=== PATIENT | male | born 1960 | race Caucasian/White ===

== ENCOUNTER 2016-09-10 15:19 | Emergency (ER) | payer MEDICAID | END 2016-09-10 18:51 | disposition home or self-care (01) | LOC: D.ER 15:19 | DX: M06.9 Rheumatoid arthritis, unspecified (principal); G89.29 Other chronic pain; I10 Essential (primary) hypertension; Z86.73 Personal history of transient ischemic attack (TIA), and cerebral infarction without residual deficits ==

== ENCOUNTER 2016-11-09 16:05 | Emergency (ER) | payer MEDICAID | END 2016-11-09 21:05 | disposition home or self-care (01) | LOC: D.ER 16:05 | DX: M25.50 Pain in unspecified joint (principal); M19.90 Unspecified osteoarthritis, unspecified site; M06.9 Rheumatoid arthritis, unspecified; I10 Essential (primary) hypertension ==

== ENCOUNTER 2016-12-01 21:39 | Emergency (ER) | payer MEDICAID | END 2016-12-02 00:15 | disposition home or self-care (01) | LOC: D.ER 21:39 | DX: M25.532 Pain in left wrist (principal); M25.531 Pain in right wrist; M06.9 Rheumatoid arthritis, unspecified; F11.90 Opioid use, unspecified, uncomplicated; M79.642 Pain in left hand; M79.641 Pain in right hand; M25.512 Pain in left shoulder; M25.511 Pain in right shoulder ==

== ENCOUNTER 2017-06-26 13:09 | Emergency (ER) | payer MEDICAID | END 2017-06-26 16:07 | disposition home or self-care (01) | LOC: D.ER 13:09 | DX: M06.9 Rheumatoid arthritis, unspecified (principal) ==

== ENCOUNTER 2017-07-16 18:25 | Emergency (ER) | payer MEDICAID | END 2017-07-16 19:44 | disposition home or self-care (01) | LOC: D.ER 18:25 | DX: M06.9 Rheumatoid arthritis, unspecified (principal) ==

== ENCOUNTER 2017-12-03 16:43 | Emergency (ER) | payer MEDICAID ==
[2017-12-03 18:10] LABS: BASOPHILS 0.2 % (0-2); EOSINOPHILS 0.2 % (0-7); HEMATOCRIT 39.6 % (42.0-54.0); HEMOGLOBIN 13.5 g/dL (13.5-17.5); LYMPHOCYTES 17.1 % (15-50); MCHC 34.1 g/dL (31.0-37.0); MEAN PLATELET VOLUME 9.6 fL (7.4-10.4); MONOCYTES 4.4 % (2-11); NEUTROPHILS 78.1 % (40-80); PLATELET COUNT 235 10x3/uL (130-400); RBC 4.83 10x6/uL (4.20-6.10); RDW 14.6 % (11.5-14.5)
[2017-12-03 18:11] LABS: APPEARANCE CLEAR (CLEAR); BILIRUBIN NEGATIVE (NEGATIVE); COLOR YELLOW (YELLOW); GLUCOSE NEGATIVE (NEGATIVE); KETONE NEGATIVE (NEGATIVE); NITRITE NEGATIVE (NEGATIVE); PROTEIN NEGATIVE (NEGATIVE); SPECIFIC GRAVITY 1.015 (1.005-1.020); UROBILINOGEN NORMAL (NORMAL)
[2017-12-03 18:13] LABS: ALBUMIN 3.3 g/dL (3.4-5.0); BILIRUBIN - TOTAL 0.18 mg/dL (0.2-1.3); CALCIUM 8.8 mg/dL (8.5-10.1); CARBON DIOXIDE 27.3 mmol/L (21.0-32.0); CREATININE - SERUM 1.3 mg/dL (0.6-1.3); POTASSIUM - SERUM 4.3 mmol/L (3.5-5.1); PROTEIN - SERUM 7.6 g/dL (6.4-8.2)
== END 2017-12-03 21:37 | disposition home or self-care (01) ==
LOC: D.ER 16:43
PROVIDERS: Family Medicine
DX: I82.402 Acute embolism and thrombosis of unspecified deep veins of left lower extremity (principal); R22.42 Localized swelling, mass and lump, left lower limb; M79.605 Pain in left leg; Z86.718 Personal history of other venous thrombosis and embolism; F17.200 Nicotine dependence, unspecified, uncomplicated

== ENCOUNTER 2018-02-06 15:46 | Emergency (ER) | payer MEDICAID ==
[~2018-02-06] VITALS: Ht 175.3 cm; Wt 65.0 kg
[2018-02-06 16:19] VITALS: BP 100/38; Ht 175.3 cm; Wt 65.0 kg
[2018-02-06] MEDS ORDERED: HYDROCODONE-IB1 EAC3 PO (16:22)
[2018-02-06] MEDS ORDERED: LISINOPRIL-HCTZ1 T13 PO (16:22)
[2018-02-06] MEDS ORDERED: XANAX1 MG PO (16:22)
[2018-02-06] MEDS ORDERED: INDOCIN-SR75 MG PO (16:23)
[2018-02-06] MEDS ORDERED: BLOOD THINNER (16:23)
[2018-02-06] MEDS ORDERED: ELIQUIS5 MG PO (18:03)
== END 2018-02-06 18:47 | disposition home or self-care (01) ==
LOC: D.ER 15:46
DX: Z76.0 Encounter for issue of repeat prescription (principal); Z86.718 Personal history of other venous thrombosis and embolism; F17.200 Nicotine dependence, unspecified, uncomplicated

== ENCOUNTER 2019-01-26 16:06 | Emergency (ER) | payer MEDICAID ==
[~2019-01-26 16:06] MED LIST: BLOOD THINNER; ELIQUIS5 MG PO; HYDROCODONE-IB1 EAC3 PO; INDOCIN-SR75 MG PO; LISINOPRIL-HCTZ1 T13 PO; XANAX1 MG PO
[2019-01-26 16:19] VITALS: BMI 22.9
[2019-01-26 17:05] LABS: BASOPHILS 0.3 % (0-2); EOSINOPHILS 1.3 % (0-7); HEMATOCRIT 33.7 % (42.0-54.0); IMMATURE GRANULOCYTES 0.2 % (0-5); LYMPHOCYTES 16.6 % (15-50); MCH 28.4 pg (26.0-34.0); MCHC 35.6 g/dL (31.0-37.0); MCV 79.7 fL (80.0-100.0); MEAN PLATELET VOLUME 9.5 fL (7.4-10.4); MONOCYTES 8.6 % (2-11); PLATELET COUNT 244 10x3/uL (130-400); RBC 4.23 10x6/uL (4.20-6.10); RDW 14.1 % (11.5-14.5); WBC 11.1 10x3/uL (4.8-10.8)
[2019-01-26 17:21] LABS: INR 1.16 (0.85-1.17); PROTIME 14.3 SECONDS (11.6-15.0)
[2019-01-26 17:22] LABS: APTT 31.7 SECONDS (22.8-39.4)
[2019-01-26 17:24] LABS: ALBUMIN 2.8 g/dL (3.4-5.0); ALKALINE PHOSPHATASE 120 U/L (46-116); ALT (SGPT) 26 U/L (10-68); BILIRUBIN - TOTAL 0.34 mg/dL (0.2-1.3); CALC OSMOLALITY 276 mosm/kg (275-300); CALCIUM 8.7 mg/dL (8.5-10.1); CARBON DIOXIDE 24.5 mmol/L (21.0-32.0); CHLORIDE - SERUM 100 mmol/L (98-107); CREATININE - SERUM 1.7 mg/dL (0.6-1.3); GLUCOSE 91 mg/dL (74-106); PROTEIN - SERUM 7.7 g/dL (6.4-8.2); SODIUM 135 mmol/L (136-145); UREA NITROGEN 32 mg/dL (7-18); eGFR NON AFRICAN AMERICAN 44 mL/min (90-120)
[2019-01-26 17:35] LABS: CKMB 1.9 U/L (0.0-3.6); CREATINE KINASE 71 UL (21-232); PRO BNP 198 pg/mL (0-125); TROPONIN-I < 0.017 ng/mL (0.000-0.060)
[2019-01-26 18:04] LABS: ERYTHROCYTE SEDIMENTATION RATE 93 mm/hr (0-20)
[2019-01-26] MEDS ORDERED: VIBRAMYCIN 100100 MG PO (18:31)
[2019-01-26] MEDS ORDERED: ALBUTEROL SULF8.5 GM INH (18:31)
[2019-01-26] MEDS ORDERED: HYDROCODON-ACE1 EAC2 PO (18:33)
[2019-01-26 19:40] VITALS: BP 106/72
[2019-05-03 15:17] VITALS: BMI 22.1
== END 2019-01-26 19:40 | disposition home or self-care (01) ==
LOC: D.ER 16:06
PROVIDERS: Family Medicine
DX: R05 Cough (principal); M06.9 Rheumatoid arthritis, unspecified

== ENCOUNTER 2019-04-28 15:33 | Emergency (ER) | payer MEDICAID ==
[~2019-04-28] VITALS: Ht 175.3 cm; Wt 68.2 kg
[~2019-04-28 15:33] MED LIST changes: +ALBUTEROL SULF8.5 GM INH; +HYDROCODON-ACE1 EAC2 PO; +VIBRAMYCIN 100100 MG PO
[2019-04-28 15:47] VITALS: BP 110/63; Ht 175.3 cm; Wt 68.2 kg
[2019-04-28 16:53] LABS: BASOPHILS 0.2 % (0-2); EOSINOPHILS 0.2 % (0-7); HEMATOCRIT 36.9 % (42.0-54.0); HEMOGLOBIN 12.9 g/dL (13.5-17.5); IMMATURE GRANULOCYTES 0.2 % (0-5); LYMPHOCYTES 9.1 % (15-50); MCH 28.7 pg (26.0-34.0); MEAN PLATELET VOLUME 9.1 fL (7.4-10.4); NEUTROPHILS 83.3 % (40-80); PLATELET COUNT 222 10x3/uL (130-400); RDW 14.1 % (11.5-14.5)
[2019-04-28 17:11] LABS: ALBUMIN 3.2 g/dL (3.4-5.0); ANION GAP 12.4 mmol/L (8-16); BILIRUBIN - TOTAL 0.35 mg/dL (0.2-1.3); C-REACTIVE PROTEIN 9.6 mg/dL (0.0-0.9); CALCIUM 8.8 mg/dL (8.5-10.1); CARBON DIOXIDE 25.9 mmol/L (21.0-32.0); CREATININE - SERUM 1.5 mg/dL (0.6-1.3); POTASSIUM - SERUM 4.3 mmol/L (3.5-5.1); PROTEIN - SERUM 7.9 g/dL (6.4-8.2)
[2019-04-28 18:28] LABS: ERYTHROCYTE SEDIMENTATION RATE 35 mm/hr (0-20)
[2019-04-28] MEDS ORDERED: CLEOCIN HCL300 MG PO (21:20)
[2019-05-03 15:17] VITALS: Ht 175.3 cm; Wt 68.2 kg
== END 2019-04-28 22:00 | disposition left against medical advice (07) ==
LOC: D.ER 15:33
PROVIDERS: Emergency Medicine
DX: L03.113 Cellulitis of right upper limb (principal)

== ENCOUNTER 2019-05-02 18:56 | Inpatient (IN) | payer MEDICAID ==
[~2019-05-02] VITALS: Ht 175.3 cm; Wt 68.0 kg
[~2019-05-02 18:56] MED LIST changes: +CLEOCIN HCL300 MG PO
[2019-05-02 19:26] LABS: HEMATOCRIT 30.9 % (42.0-54.0); HEMOGLOBIN 10.6 g/dL (13.5-17.5); LYMPHOCYTES 21.3 % (15-50); MCH 28.6 pg (26.0-34.0); MCHC 34.3 g/dL (31.0-37.0); MCV 83.5 fL (80.0-100.0); MEAN PLATELET VOLUME 8.9 fL (7.4-10.4); NEUTROPHILS 68.6 % (40-80); PLATELET COUNT 235 10x3/uL (130-400); RDW 14.4 % (11.5-14.5); WBC 8.8 10x3/uL (4.8-10.8)
[2019-05-02 19:43] LABS: ALBUMIN 2.6 g/dL (3.4-5.0); BILIRUBIN - TOTAL 0.26 mg/dL (0.2-1.3); CALCIUM 8.2 mg/dL (8.5-10.1); CARBON DIOXIDE 23.6 mmol/L (21.0-32.0); CREATININE - SERUM 1.8 mg/dL (0.6-1.3); POTASSIUM - SERUM 3.7 mmol/L (3.5-5.1); PROTEIN - SERUM 7.1 g/dL (6.4-8.2)
[2019-05-02 20:43] LABS: ANION GAP 14.1 mmol/L (8-16)
[2019-05-02 23:32] VITALS: BP 97/50
--- NOTE | 2019-05-02 23:32 | NUR ---
NS BOLUS 0F 1000CC STARTED AT 2031 FINISHED AT 2139.
[2019-05-03 00:16] VITALS: BP 77/59
[2019-05-03 05:10] VITALS: BP 105/65
[2019-05-03 06:50] LABS: BASOPHILS 0.2 % (0-2); EOSINOPHILS 1.7 % (0-7); HEMOGLOBIN 9.6 g/dL (13.5-17.5); IMMATURE GRANULOCYTES 0.3 % (0-5); LYMPHOCYTES 16.5 % (15-50); MCHC 34.3 g/dL (31.0-37.0); MCV 81.6 fL (80.0-100.0); MEAN PLATELET VOLUME 9.7 fL (7.4-10.4); MONOCYTES 8.5 % (2-11); NEUTROPHILS 72.8 % (40-80); PLATELET COUNT 225 10x3/uL (130-400); RBC 3.43 10x6/uL (4.20-6.10); RDW 14.2 % (11.5-14.5); WBC 9.6 10x3/uL (4.8-10.8)
[2019-05-03 07:00] LABS: ANION GAP 11.2 mmol/L (8-16); CALCIUM 7.7 mg/dL (8.5-10.1); CARBON DIOXIDE 24.9 mmol/L (21.0-32.0); CREATININE - SERUM 1.6 mg/dL (0.6-1.3); POTASSIUM - SERUM 4.1 mmol/L (3.5-5.1)
[2019-05-03 07:18] VITALS: BP 90/58
--- NOTE | 2019-05-03 07:57 | NUR ---
PT LAYING IN BED. RR EVEN AND UNLABORED. DENIES NEEDS OR PAIN AT THIS TIME. PT RECIEVED BREAKFAST TRAY. ASSISTED PT TO SIDE OF BED. WILL CONTINUE TO MONITOR.
--- NOTE | 2019-05-03 13:16 | MORECARE ---
CASE MANAGEMENT DISCHARGE SUMMARY PATIENT: CASSY MENDIOLA UNIT: [id number] ADM DATE: 05/02/19 AGE: 58 : 56 SEX: M ROOM/BED: D.1212 AUTHOR: TOYA MCCONNELL PHYSICIAN: REFERRING PHYSICIAN: CHIDI WHALEN MD DATE OF SERVICE: 05/03/19 Discharge Plan Patient Name: CASSY MENDIOLA [facility] : 1960 Planned Disposition: Home Anticipated Discharge Date: Discharge Date: Expected LOS: Initial Reviewer: [email or web address] Initial Review Date: 05/03/2019 Generated: 05/03/19 2:16 pm DCPIA - Discharge Planning Initial Assessment Updated by [email or web address]: Bee Robles on 05/03/19 1:14 pm * Is the patient Alert and Oriented? Yes * How many steps to enter\exit or inside your home? * PCP IZABELA * Pharmacy [facility] * Preadmission Environment Home with Family * ADLs Partial Dependent * Partial ADLs (Assistance needed) Bathing Dressing Eating Medication Management Toileting Transfers * Other Equipment CANE, WALKER * List name and contact numbers for known caregivers / representatives who currently or will assist patient after discharge: DANIEL MENDIOLA - BROTHER- [phone] * Verbal permission to speak to the caregivers and representatives has been obtained from the patient. Yes * Community resources currently utilized Other * Please name any agencies selected above. [facility] [phone] - SISTER IS PAID TO CARE FOR HIM * Additional services required to return to the preadmission environment? No * Can the patient safely return to the preadmission environment? Yes * Has this patient been hospitalized within the prior 30 days at any hospital? No Patient Name: CASSY MENDIOLA Page 43218 at 1316 All edits/amendments must be made on the electronic document DICTATION DATE: 05/03/19 1316 DRESSER TENDER: GILBERT 05/03/19 1316 RPT#: [id number] DC DATE: STATUS: ADM IN [facility] [address] [place] [address] END OF REPORT
--- NOTE | 2019-05-03 13:30 | MORECARE ---
CASE MANAGEMENT DISCHARGE SUMMARY PATIENT: CASSY MENDIOLA UNIT: [id number] ADM DATE: 05/02/19 AGE: 58 : 56 SEX: M ROOM/BED: D.1212 AUTHOR: JAYESH,DOC PHYSICIAN: REFERRING PHYSICIAN: CHIDI WHALEN MD DATE OF SERVICE: 05/03/19 Discharge Plan Patient Name: CASSY MENDIOLA Facility: [facility]:[place] : 1960 Planned Disposition: Home Anticipated Discharge Date: Discharge Date: Expected LOS: Initial Reviewer: [email or web address] Initial Review Date: 05/03/2019 Generated: 05/03/19 2:30 pm DCP- Discharge Planning Updated by [email or web address]: Bee Robles on 05/03/19 12:[address] Patient Name: CASSY MENDIOLA Admission Status: ER Accout number: [id number] Admission Date: 05-02-2019 : 1960 Admission Diagnosis: Attending: CHIDI WHALEN Current LOS: 1 Anticipated DC Date: Planned Disposition: Home Primary Insurance: MEDICAID [place] Discharge Planning Comments: CM met with patient at bedside after explaining CM role and obtaining verbal consent. Patient lives at home with his sister and plans to return there upon discharge. Patient states that his is his caregiver and is paid by [employer] [phone] to take care of him in the home. Patient isn't happy with the care his sister is giving. CM will give patient the number to [place] if he would like to report it. Patient feels this would be a safe discharge. CM discussed availability / needs of home health and medical equipment. Patient states that he has been trying to get [facility] but has multiple appointments rescheduled for one reason or the other. CM called [facility] ([address] [place] [address] [address], [place] [address] ) CM contacted office to see if they would fax over new patient paper work so CM could help patient fill it out since he is unable to write d/t arthritis. This has been a barrier for prior appointments. Patient currently has an appointment scheduled for June 09. Patient denies any discharge needs at this time. Patient states he will have his sister drive him home upon discharge. CM will continue to follow and assist as needed with discharge planning / needs. Senior Sales Director: Bee WOODALL - Discharge Planning Initial Assessment Updated by [email or web address]: Bee Robles on 05/03/19 1:14 pm * Is the patient Alert and Oriented? Yes * How many steps to enter\exit or inside your home? * PCP IZABELA * Pharmacy [facility] * Preadmission Environment Home with Family * ADLs Partial Dependent * Partial ADLs (Assistance needed) Bathing Dressing Eating Medication Management Toileting Transfers * Other Equipment CANE, WALKER * List name and contact numbers for known caregivers / representatives who currently or will assist patient after discharge: DANIEL MENDIOLA - BROTHER- [phone] * Verbal permission to speak to the caregivers and representatives has been obtained from the patient. Yes * Community resources currently utilized Other * Please name any agencies selected above. [facility] [phone] - SISTER IS PAID TO CARE FOR HIM * Additional services required to return to the preadmission environment? No * Can the patient safely return to the preadmission environment? Yes * Has this patient been hospitalized within the prior 30 days at any hospital? No Last DP export: 05/03/19 12:16 p Patient Name: CASSY MENDIOLA Page [phone] at 1330 All edits/amendments must be made on the electronic document DICTATION DATE: 05/03/19 1330 FULLER BRUSH WORKER: GILBERT 05/03/19 1330 RPT#: [id number] DC DATE: STATUS: ADM IN [facility] [address] [place] [address] END OF REPORT
[2019-05-03 15:17] VITALS: Ht 175.3 cm; Wt 68.0 kg
[2019-05-03 17:16] VITALS: BP 108/63
--- NOTE | 2019-05-03 19:43 | NUR ---
GUESTS WERE HERE WITH LOTS OF REQUESTS FOR PATIENT, TV WAS NOT LOUD ENOUGH FOR THEM, THEY HAD CONCERNS OF HIM NOT GETTING NICOTINE PATCH, WHICH WAS ORDERED, WE ARE WAITING FOR SCRIPT TO BE FILLED, THEY WERE LOUD AND BOISTEROUS AND LEFT HIS ROOM IN DISARRAY, HE HAD STAFF HELP HIM GET IT STRAIGHTENED BACK UP.
[2019-05-03 19:46] VITALS: BP 114/55
--- NOTE | 2019-05-03 20:44 | NUR ---
NICOTINE PATCH APPLIED TO RIGHT SHOULDER, STATES HE WOULD LIKE HIS PAIN MEDICATION, EXPLAINED HE WOULD NEED TO WAIT ONE MORE HOUR TO BE IN COMPLIANCE, HE STATED HE GOT IT THREE TIMES A DAY AT HOME, THIS NURSE EXPLAINED IT WAS ORDERED EVERY 6 HOURS HERE NEEDED AND THAT HE WOULD NEED TO REQUEST IT, HE VERBALIZED UNDERSTANDING. IV CONTINUES TO OCCLUDE TO LEFT WRIST WHEN TALKING ON PHONE, REFUSES RESITING AT THIS TIME. WILL NOTE ANY CHANGE.
--- NOTE | 2019-05-03 22:32 | NUR ---
IV CONTINUES TO OCCLUDE CAUSING AGITATION TO PATIENT, HOWEVER, PT STILL DOES NOT WANT IT TO BE RESITED. PT REQUESTED IV TO BE SALINE LOCKED AT THIS TIME. HE STATES HE JUST WANTS TO SLEEP IN [place]. REQUEST GRANTED WITH AGREEMENT TO LET THIS NURSE RESITE IN MORNING AFTER HOURS OF SLEEP.
[2019-05-03 23:19] VITALS: BP 121/84
--- NOTE | 2019-05-04 02:28 | NUR ---
I have reviewed this patient and I concur with the Shift Assessment completed by the Licensed Practical Nurse today this shift.
[2019-05-04 05:29] VITALS: BP 131/69
--- NOTE | 2019-05-04 05:41 | NUR ---
ATTEMPTED TO RESITE IV WITH NO SUCCESS, PT IS NOT WILLING TO CONTINUE TO TRY AT THIS TIME. VASCULAR ACCESS CONSULT PUT IN. WILL NOTE ANY CHANGE.
[2019-05-04 06:40] LABS: BASOPHILS 0.2 % (0-2); EOSINOPHILS 0 % (0-7); HEMATOCRIT 26.5 % (42.0-54.0); HEMOGLOBIN 9.1 g/dL (13.5-17.5); IMMATURE GRANULOCYTES 0.2 % (0-5); MCH 27.9 pg (26.0-34.0); MCHC 34.3 g/dL (31.0-37.0); MCV 81.3 fL (80.0-100.0); MEAN PLATELET VOLUME 9.9 fL (7.4-10.4); MONOCYTES 3.1 % (2-11); NEUTROPHILS 86.5 % (40-80); PLATELET COUNT 215 10x3/uL (130-400); RBC 3.26 10x6/uL (4.20-6.10); RDW 14.2 % (11.5-14.5)
[2019-05-04 06:43] LABS: WBC 6.5 10x3/uL (4.8-10.8)
[2019-05-04 06:52] LABS: ALBUMIN 2.1 g/dL (3.4-5.0); BILIRUBIN - TOTAL 0.18 mg/dL (0.2-1.3); CARBON DIOXIDE 26.5 mmol/L (21.0-32.0); CREATININE - SERUM 1.7 mg/dL (0.6-1.3); POTASSIUM - SERUM 4.5 mmol/L (3.5-5.1); PROTEIN - SERUM 6.4 g/dL (6.4-8.2)
[2019-05-04 08:08] VITALS: BP 146/75
--- NOTE | 2019-05-04 09:04 | NUR ---
PT SITTING UP IN BED. ALERT AND ORIENTED. RIGHT ARM SWELLING HAS IMPROVED SLIGHTLY SINCE YESTERDAY. PT REQUESTS PAIN MEDICATION. WILL BE GIVEN PER ORDER. RR EVEN AND UNLABORED. PT INSTRUCTED TO GET UP AND WALK AROUND TODAY. ASSISTED TO THE SIDE OF THE BED TO EAT. VASCULAR ACCESS NURSE ATTEMPTED TO START IV. PT REQUESTED SHE COME BACK AFTER BREAKFAST IS FINISHED. WILL CONTINUE TO MONITOR.
--- NOTE | 2019-05-04 10:58 | NUR ---
PT IN SHOWER AT THIS TIME.
--- NOTE | 2019-05-04 11:00 | NUR ---
WEAPING NOTED FROM PT RIGHT ARM. KURLEX AND 2X2 APPPLIED. 1230- WEAPING SEPT THROUGH, DRESSING CHANGED
[2019-05-04 12:01] LABS: % SATURATION 24 % (15-55); IRON 38 ug/dl (35-150); TOTAL IRON BIND CAPACITY 156 ug/dl (260-445); UNSAT IRON BIND CAPACITY 118 ug/dl (150-375)
[2019-05-04 12:23] LABS: MAGNESIUM - SERUM 1.8 mg/dL (1.8-2.4)
--- NOTE | 2019-05-04 12:25 | NUR ---
I have reviewed this patient and I concur with the Shift Assessment completed by the Licensed Practical Nurse today this shift.
[2019-05-04 12:38] LABS: INR 1.11 (0.85-1.17); PROTIME 13.8 SECONDS (11.6-15.0)
[2019-05-04 12:39] LABS: APTT 40.6 SECONDS (22.8-39.4)
[2019-05-04 16:48] VITALS: BP 141/73
--- NOTE | 2019-05-04 18:03 | NUR ---
PT AMBULATING IN HALLWAY
--- NOTE | 2019-05-04 18:39 | NUR ---
BANDAGE FALLING OFF ARM. REDRESSED AND REINFORCED WITH AZALEA WRAP.
--- NOTE | 2019-05-04 19:29 | NUR ---
LYING IN BED, SPIRIT IS BETTER TONIGHT, ASKS QUESTIONS ABOUT HIS ANTIBIOTICS, ANSWERED BEST TO MY ABILITY. ATTEMPTS TO TELL ME HAS ORDERED HIS PAIN PILLS TO BE GIVEN HE REQUESTS WITH NO TIME RESTRAINTS, EDUCATED ON MEDICATION ORDERS, HE LAUGHED AND SAID I GUESS SO. IV TO RIGHT UPPER AC IS PATENT WITH IV INFUSING PER ORDERS. WILL NOTE ANY CHANGE.
[2019-05-04 20:09] VITALS: BP 115/80
--- NOTE | 2019-05-05 01:54 | NUR ---
I have reviewed this patient and I concur with the Shift Assessment completed by the Licensed Practical Nurse today this shift.
[2019-05-05 04:32] VITALS: BP 169/80
--- NOTE | 2019-05-05 05:29 | NUR ---
WAS UP AND AMBULATING THROUGHOUT SHIFT, IN [facility], THIS NURSE MADE COKE FLOAT FOR PT. PT RESTED APPROX 5 HOURS THIS SHIFT, WILL NOTE ANY CHANGE.
[2019-05-05 06:21] LABS: BASOPHILS 0.1 % (0-2); EOSINOPHILS 0 % (0-7); HEMATOCRIT 27.2 % (42.0-54.0); HEMOGLOBIN 9.3 g/dL (13.5-17.5); IMMATURE GRANULOCYTES 0.4 % (0-5); LYMPHOCYTES 7.9 % (15-50); MCH 27.8 pg (26.0-34.0); MCHC 34.2 g/dL (31.0-37.0); MCV 81.2 fL (80.0-100.0); MEAN PLATELET VOLUME 10.1 fL (7.4-10.4); MONOCYTES 4.9 % (2-11); NEUTROPHILS 86.7 % (40-80); RBC 3.35 10x6/uL (4.20-6.10); RDW 14.2 % (11.5-14.5)
[2019-05-05 06:31] LABS: PLATELET COUNT 276 10x3/uL (130-400); WBC 10.2 10x3/uL (4.8-10.8)
[2019-05-05 06:51] LABS: ALBUMIN 2.3 g/dL (3.4-5.0); ANION GAP 17.2 mmol/L (8-16); BILIRUBIN - TOTAL 0.07 mg/dL (0.2-1.3); CALCIUM 8.1 mg/dL (8.5-10.1); CREATININE - SERUM 1.3 mg/dL (0.6-1.3); PROTEIN - SERUM 5.9 g/dL (6.4-8.2)
[2019-05-05 06:52] LABS: CARBON DIOXIDE 19.8 mmol/L (21.0-32.0)
[2019-05-05 09:04] VITALS: BP 159/75
--- NOTE | 2019-05-05 09:41 | NUR ---
NUTRITION F/U PT TOLERATING CURRENT REG DIET, 100% INTAKE BREAKFAST THIS AM. WILL CONTINUE TO HONOR FOOD PREFERENCES, MONITOR PO INTAKE. RD FOLLOWING
--- NOTE | 2019-05-05 09:43 | NUR ---
PT RESTING, EYES CLOSED. VSS. ASSESSMENT COMPLETE. RR EVEN AND UNLABORED. WILL REDRESS ARM IF NEEDED. SWELLING AND REDNESS TO RIGHT UPPER EXTREMITY HAS IMPROVED SINCE YESTERDAY. ENCOURAGED TO AMBULATE IN HALLWAY. DENIES NEEDS OR PAIN AT THIS TIME. WILL CONTINUE TO MONITOR.
--- NOTE | 2019-05-05 11:30 | NUR ---
PT C/O IV HURTING. SITE RED AND SWOLLEN. IV D/C WITH CATHETER TIP INTACT. RIGHT ARM DRESSING REMOVED AND REDRESSED. PT EDUCATED ON ANTIBIOTICS.
--- NOTE | 2019-05-05 12:37 | NUR ---
I have reviewed this patient and I concur with the Shift Assessment completed by the Licensed Practical Nurse today this shift.
[2019-05-05] MEDS ORDERED: STERAPRED 5MG 125 MG PO (13:07)
[2019-05-05] MEDS ORDERED: HYDROCODONE-A1 UDTA2 PO (13:09)
--- NOTE | 2019-05-05 15:07 | NUR ---
D/C PAPERWORK REVIEWED AND SIGNED. ALL QUESTIONS ANSWERED AND VERBALIZED UNDERSTANDING. ALL BELONGINGS SENT WITH PT. PT INSTRUCTED TO TAKE OFF DRESSING ON ARM IN 24 HOURS OR IF IT FELL OFF. PT INSISTED ON WALKING OUT TO SISTER'S VEHICLE. WAS ESCORTED BY KATE [facility]. NICOTINE PATCH REMOVED BEFORE D/C.
--- NOTE | 2019-05-05 15:10 | NUR ---
COPY OF PT SCRIPT WAS PLACED IN CHART
--- NOTE | 2019-05-05 18:09 | MORECARE ---
CASE MANAGEMENT DISCHARGE SUMMARY PATIENT: CASSY MENDIOLA UNIT: [id number] ADM DATE: 05/02/19 AGE: 58 : 56 SEX: M ROOM/BED: D.1212 AUTHOR: JAYESH,DOC PHYSICIAN: REFERRING PHYSICIAN: CHIDI WHALEN MD DATE OF SERVICE: 05/05/19 Discharge Plan Patient Name: CASSY MENDIOLA Facility: [facility]:[place] : 1960 Planned Disposition: Home Anticipated Discharge Date: Discharge Date: 05/05/2019 Expected LOS: Initial Reviewer: [email or web address] Initial Review Date: 05/03/2019 Generated: 05/05/19 7:08 pm DCP- Discharge Planning Updated by [email or web address]: Bee Robles on 05/03/19 12:[address] Patient Name: CASSY MENDIOLA Admission Status: ER Accout number: [id number] Admission Date: 05-02-2019 : 1960 Admission Diagnosis: Attending: CHIDI WHALEN Current LOS: 1 Anticipated DC Date: Planned Disposition: Home Primary Insurance: MEDICAID [place] Discharge Planning Comments: CM met with patient at bedside after explaining CM role and obtaining verbal consent. Patient lives at home with his sister and plans to return there upon discharge. Patient states that his is his caregiver and is paid by [employer] [phone] to take care of him in the home. Patient isn't happy with the care his sister is giving. CM will give patient the number to [facility] if he would like to report it. Patient feels this would be a safe discharge. CM discussed availability / needs of home health and medical equipment. Patient states that he has been trying to get into [facility] Clinic but has multiple appointments rescheduled for one reason or the other. CM called [facility] ([address] [place] [address] [address], [place] [address] ) CM contacted office to see if they would fax over new patient paper work so CM could help patient fill it out since he is unable to write d/t arthritis. This has been a barrier for prior appointments. Patient currently has an appointment scheduled for June 09. Patient denies any discharge needs at this time. Patient states he will have his sister drive him home upon discharge. CM will continue to follow and assist as needed with discharge planning / needs. Ultrasound Specialist: Bee WOODALL - Discharge Planning Initial Assessment Updated by [email or web address]: Bee Robles on 05/03/19 1:14 pm * Is the patient Alert and Oriented? Yes * How many steps to enter\exit or inside your home? * PCP IZABELA * [facility] * Preadmission Environment Home with Family * ADLs Partial Dependent * Partial ADLs (Assistance needed) Bathing Dressing Eating Medication Management Toileting Transfers * Other Equipment CANE, WALKER * List name and contact numbers for known caregivers / representatives who currently or will assist patient after discharge: DANIEL MENDIOLA - BROTHER- [phone] * Verbal permission to speak to the caregivers and representatives has been obtained from the patient. Yes * Community resources currently utilized Other * Please name any agencies selected above. [facility] [phone] - SISTER IS PAID TO CARE FOR HIM * Additional services required to return to the preadmission environment? No * Can the patient safely return to the preadmission environment? Yes * Has this patient been hospitalized within the prior 30 days at any hospital? No Last DP export: 05/03/19 12:30 p Patient Name: CASSY MENDIOLA Page [id number] at 1809 All edits/amendments must be made on the electronic document DICTATION DATE: 05/05/191807 LOSS CONTROL TECHNICIAN: GILBERT 05/05/191807 RPT#: [id number] DC DATE:05/05/19 STATUS: DIS IN [facility] [address] [place] [address] END OF REPORT
== END 2019-05-05 16:10 | disposition home or self-care (01) | DRG 603 ==
LOC: D.ER 18:56 → D.M3 22:50
PROVIDERS: Emergency Medicine; Family Medicine; ADMIT Internal Medicine Nephrology; ATTEND Internal Medicine Nephrology
DX: L03.113 Cellulitis of right upper limb (principal); N17.9 Acute kidney failure, unspecified; F17.213 Nicotine dependence, cigarettes, with withdrawal; D50.9 Iron deficiency anemia, unspecified; M06.9 Rheumatoid arthritis, unspecified; Z86.73 Personal history of transient ischemic attack (TIA), and cerebral infarction without residual deficits; Z86.718 Personal history of other venous thrombosis and embolism

== ENCOUNTER 2019-10-08 11:19 | Emergency (ER) | payer MEDICAID ==
[~2019-10-08] VITALS: Ht 175.3 cm; Wt 72.7 kg
[~2019-10-08 11:19] MED LIST changes: +HYDROCODONE-A1 UDTA2 PO; +STERAPRED 5MG 125 MG PO
[2019-10-08 11:23] VITALS: Ht 175.3 cm; Wt 72.7 kg
[2019-10-08] MEDS ORDERED: ULTRAM50 MG PO (11:45)
[2019-10-08 11:54] VITALS: BP 136/78
== END 2019-10-08 11:55 | disposition home or self-care (01) ==
LOC: D.ER 11:19
DX: M06.9 Rheumatoid arthritis, unspecified (principal); I25.2 Old myocardial infarction; Z86.73 Personal history of transient ischemic attack (TIA), and cerebral infarction without residual deficits

== ENCOUNTER 2020-03-21 16:01 | Inpatient (IN) | payer MEDICAID ==
[~2020-03-21] VITALS: Ht 175.3 cm; Wt 72.5 kg
[2020-03-21] VITALS (8 sets, daily range): BP systolic 133–209; BP diastolic 99–143
[~2020-03-21 16:01] MED LIST changes: +ULTRAM50 MG PO
--- NOTE | 2020-03-21 17:00 | NUR ---
RAMÍREZ NUÑEZ NOTIFIED OF ELEVATED BP AND RESP DISRESS. SAVANNAH AT BS.
[2020-03-21 17:29] LABS: BASOPHILS 0.7 % (0-2); EOSINOPHILS 0.7 % (0-7); HEMATOCRIT 36.9 % (42.0-54.0); HEMOGLOBIN 12.1 g/dL (13.5-17.5); IMMATURE GRANULOCYTES 0.3 % (0-5); LYMPHOCYTES 23.7 % (15-50); MCHC 32.8 g/dL (31.0-37.0); MCV 79.2 fL (80.0-100.0); MEAN PLATELET VOLUME 9.7 fL (7.4-10.4); MONOCYTES 7.6 % (2-11); RBC 4.66 10x6/uL (4.20-6.10); RDW 15.5 % (11.5-14.5); WBC 7.4 10x3/uL (4.8-10.8)
--- NOTE | 2020-03-21 17:42 | NUR ---
NASAL SWAB COLLECTED, LABELED AT BS AND SENT TO LAB
[2020-03-21 17:43] LABS: INR 1.1 (0.85-1.17); PROTIME 14.2 SECONDS (11.6-15.0)
--- NOTE | 2020-03-21 17:43 | NUR ---
"EVERY JOINT IN MY BODY HURTS"
[2020-03-21 17:44] LABS: CALC OSMOLALITY 270 mosm/kg (275-300); CALCIUM 8.9 mg/dL (8.5-10.1); CARBON DIOXIDE 26.7 mmol/L (21.0-32.0); CHLORIDE - SERUM 100 mmol/L (98-107); CREATININE - SERUM 1.3 mg/dL (0.6-1.3); GLUCOSE 122 mg/dL (74-106); PLATELET COUNT 492 10x3/uL (130-400); POTASSIUM - SERUM 4.5 mmol/L (3.5-5.1); SODIUM 134 mmol/L (136-145); UREA NITROGEN 18 mg/dL (7-18); eGFR NON AFRICAN AMERICAN 60 mL/min (90-120)
[2020-03-21 18:05] LABS: ALBUMIN 2.9 g/dL (3.4-5.0); ALKALINE PHOSPHATASE 135 U/L (30-120); ALT (SGPT) 27 U/L (10-68); BILIRUBIN - TOTAL 0.49 mg/dL (0.2-1.3); CKMB 5.1 U/L (0.0-3.6); CREATINE KINASE 114 UL (21-232); PROTEIN - SERUM 7.2 g/dL (6.4-8.2)
[2020-03-21 18:13] LABS: PRO BNP 65109 pg/mL (0-125)
[2020-03-21 18:14] LABS: TROPONIN-I 0.065 ng/mL (0.000-0.060)
--- NOTE | 2020-03-21 18:25 | NUR ---
RESTING UPRIGHT, SPEAKING IN FULL SENTENCES. "PAIN A LITTLE BETTER NOW"
--- NOTE | 2020-03-21 19:17 | NUR ---
BS REPORT TO KATE DOSS
[2020-03-21 21:50] LABS: % SATURATION 11 % (15-55); IRON 33 ug/dl (35-150); TOTAL IRON BIND CAPACITY 288 ug/dl (260-445); UNSAT IRON BIND CAPACITY 255 ug/dl (150-375)
[2020-03-21 22:17] LABS: MAGNESIUM - SERUM 2.2 mg/dL (1.8-2.4)
[2020-03-22 00:23] LABS: CKMB 4.5 U/L (0.0-3.6); CREATINE KINASE 88 UL (21-232)
[2020-03-22 00:25] LABS: TROPONIN-I 0.064 ng/mL (0.000-0.060)
[2020-03-22 00:58] VITALS: BP 147/108
[2020-03-22 04:00] VITALS: BP 145/107
[2020-03-22 07:03] LABS: BILIRUBIN NEGATIVE (NEGATIVE); GLUCOSE NEGATIVE (NEGATIVE); KETONE NEGATIVE (NEGATIVE); NITRITE NEGATIVE (NEGATIVE); UROBILINOGEN NORMAL (NORMAL)
[2020-03-22 07:04] LABS: BACTERIA FEW /hpf (NEGATIVE); RED CELLS - URINE 0-5 /hpf (0-5); WHITE CELLS - URINE RARE /hpf (NEGATIVE)
[2020-03-22 07:21] LABS: HEMATOCRIT 33.1 % (42.0-54.0); HEMOGLOBIN 10.9 g/dL (13.5-17.5); MCHC 32.9 g/dL (31.0-37.0); MCV 78.8 fL (80.0-100.0); MEAN PLATELET VOLUME 10.1 fL (7.4-10.4); RDW 15.5 % (11.5-14.5)
[2020-03-22 07:22] LABS: PLATELET COUNT 381 10x3/uL (130-400); WBC 2.8 10x3/uL (4.8-10.8)
[2020-03-22 07:50] LABS: ALBUMIN 2.5 g/dL (3.4-5.0); ALKALINE PHOSPHATASE 117 U/L (30-120); ALT (SGPT) 25 U/L (10-68); BILIRUBIN - TOTAL 0.36 mg/dL (0.2-1.3); CALCIUM 8.5 mg/dL (8.5-10.1); CARBON DIOXIDE 24.7 mmol/L (21.0-32.0); CHLORIDE - SERUM 101 mmol/L (98-107); CKMB 3.9 U/L (0.0-3.6); CREATINE KINASE 69 UL (21-232); CREATININE - SERUM 1.2 mg/dL (0.6-1.3); GLUCOSE 131 mg/dL (74-106); MAGNESIUM - SERUM 2.2 mg/dL (1.8-2.4); POTASSIUM - SERUM 4.6 mmol/L (3.5-5.1); PROTEIN - SERUM 6.7 g/dL (6.4-8.2); SODIUM 133 mmol/L (136-145); eGFR NON AFRICAN AMERICAN 65 mL/min (90-120)
[2020-03-22 07:51] LABS: CALC OSMOLALITY 271 mosm/kg (275-300); TROPONIN-I 0.068 ng/mL (0.000-0.060); UREA NITROGEN 23 mg/dL (7-18)
--- NOTE | 2020-03-22 08:00 | NUR ---
PT SITTING UP IN BED, RR EVEN AND UNLABORED. DENIES NEEDS OR PAIN AT THIS TIME. CALL LIGHT WTIHIN RECH, BED IN LOWEST POSITION. WILL CONTINUE TO MONITOR. ROGELIO HEREDIA STATED PT WAS CLEAR TO EAT, BREAKFAST TRAY ORDERED
[2020-03-22 08:35] LABS: ANISOCYTOSIS OCC; LYMPHOCYTES 22 % (15-50); MONOCYTES 2 % (2-11); NEUTROPHILS 74 % (40-80); PLATELET ESTIMATE NORMAL; ROULEAUX 1+
[2020-03-22 08:50] VITALS: BP 161/68
[2020-03-22 12:11] LABS: CKMB 3.3 U/L (0.0-3.6); CREATINE KINASE 100 UL (21-232)
--- NOTE | 2020-03-22 12:30 | NUR ---
I have reviewed this patient and I concur with the Shift Assessment completed by the Licensed Practical Nurse today this shift.
[2020-03-22 12:52] LABS: TROPONIN-I 0.058 ng/mL (0.000-0.060)
[2020-03-22 13:23] VITALS: BP 152/107
[2020-03-22 14:05] VITALS: Ht 175.3 cm; Wt 72.5 kg
--- NOTE | 2020-03-22 14:46 | NUR ---
I have reviewed this patient and I concur with the Shift Assessment completed by the Licensed Practical Nurse today this shift.
[2020-03-22 20:00] VITALS: BP 165/101
--- NOTE | 2020-03-22 22:46 | NUR ---
PATIENT'S BLOOD PRESSURE WAS 165/101. i CALLED ANASTASIA OMALLEY, WHO ORDERED HYDRALZINE IV PRN. BLOOD PRESSURE IS NOT HIGH ENOUNGH TO GIVE IV MEDICATION. WE WILL CONTINUE TO MONITOR HIS BLOOD PRESSURE.
[2020-03-23] VITALS: BP 168/117
[2020-03-23 04:00] VITALS: BP 178/118
--- NOTE | 2020-03-23 04:12 | NUR ---
PATIENT'S BLOOD PRESSURE HAS BEEN RUNNING HIGH.I GAVE HYDRALAZINE AND LASIX. HIS BLOOD PRESSURE IS STILL RUNNING HIGH. WE WILL GIVE HYDRALAZINE EVERY 6 HOURS. WE WILL CONTINUE TO MONITOR HIS BLOOD PRESSURE.
[2020-03-23 06:37] LABS: BASOPHILS 0.3 % (0-2); EOSINOPHILS 0.1 % (0-7); HEMATOCRIT 37.9 % (42.0-54.0); HEMOGLOBIN 12.4 g/dL (13.5-17.5); IMMATURE GRANULOCYTES 1.1 % (0-5); LYMPHOCYTES 20.5 % (15-50); MCH 25.8 pg (26.0-34.0); MCHC 32.7 g/dL (31.0-37.0); MONOCYTES 8.4 % (2-11); NEUTROPHILS 69.6 % (40-80); PLATELET COUNT 345 10x3/uL (130-400); RDW 15.8 % (11.5-14.5); WBC 11.3 10x3/uL (4.8-10.8)
[2020-03-23 07:20] LABS: ANION GAP 14.7 mmol/L (8-16); BILIRUBIN - TOTAL 0.51 mg/dL (0.2-1.3); CALCIUM 7.8 mg/dL (8.5-10.1); CARBON DIOXIDE 26.6 mmol/L (21.0-32.0); CREATININE - SERUM 1.4 mg/dL (0.6-1.3); MAGNESIUM - SERUM 1.8 mg/dL (1.8-2.4); POTASSIUM - SERUM 4.3 mmol/L (3.5-5.1); PROTEIN - SERUM 7.1 g/dL (6.4-8.2)
--- NOTE | 2020-03-23 07:41 | NUR ---
PT LAYING SUPINE, RR EVEN AND UNLABORED. DENIES NEEDS OR PAIN AT THIS TIME. CALL LIGHT WITHIN REACH. BED IN LOWEST POSITION. WILL CONTINUE TO MONITOR.
[2020-03-23 08:01] VITALS: BP 185/106
[2020-03-23 12:13] VITALS: BP 173/95
[2020-03-23 14:09] LABS: ALBUMIN 2.9 g/dL (3.4-5.0); BILIRUBIN - TOTAL 0.72 mg/dL (0.2-1.3); CALCIUM 7.7 mg/dL (8.5-10.1); CARBON DIOXIDE 31.8 mmol/L (21.0-32.0); CREATININE - SERUM 1.4 mg/dL (0.6-1.3); PROTEIN - SERUM 7.1 g/dL (6.4-8.2)
[2020-03-23 14:13] LABS: ANION GAP 10.4 mmol/L (8-16); POTASSIUM - SERUM 3.2 mmol/L (3.5-5.1)
[2020-03-23 15:22] VITALS: BP 175/88
[2020-03-23 15:29] LABS: UDS - AMPHET NEGATIVE QUAL (NEGATIVE); UDS - BARB NEGATIVE QUAL (NEGATIVE); UDS - BENZO NEGATIVE QUAL (NEGATIVE); UDS - COCAINE NEGATIVE QUAL (NEGATIVE); UDS - OPIATE POSITIVE QUAL (NEGATIVE); UDS - PCP NEGATIVE QUAL (NEGATIVE); UDS - THC NEGATIVE QUAL (NEGATIVE)
--- NOTE | 2020-03-23 15:49 | NUR ---
PT NOT NPO. U/S ABD WILL BE DONE IN AM AFTER PT KEPT NPO AFTER MIDNIGHT. NURSE CARA WAS NOTIFIED. DISCUSSED WITH PT. KIKO MENON
[2020-03-23 20:00] VITALS: BP 173/96
--- NOTE | 2020-03-23 21:30 | NUR ---
PATIENT'S IV INFILTRATED. HE IS COMPLAINING OF PAIN. I CALLED ANASTASIA OMALLEY, FOR TYLENOL AND MELATONIN. NEW IV IS IN. HE IS NPO AFTER MIDNIGHT FOR ABD ULTRASOUND.
[2020-03-24] VITALS: BP 154/90
[2020-03-24 04:00] VITALS: BP 163/86
--- NOTE | 2020-03-24 04:06 | NUR ---
PATIENT IS RESTING IN BED. HE HAS NOT SLEPT MUCH. THE DRGeri NEEDS TO ORDER SOMETHING TO HELP HIM SLEEP. WE WILL CONTINUE TO MONITOR HIS RESPIRATORY STATUS.
[2020-03-24 05:06] LABS: BASOPHILS 0.2 % (0-2); EOSINOPHILS 0.1 % (0-7); HEMATOCRIT 34.1 % (42.0-54.0); HEMOGLOBIN 11.3 g/dL (13.5-17.5); IMMATURE GRANULOCYTES 0.3 % (0-5); LYMPHOCYTES 15.4 % (15-50); MCHC 33.1 g/dL (31.0-37.0); MCV 78.6 fL (80.0-100.0); MEAN PLATELET VOLUME 9.7 fL (7.4-10.4); MONOCYTES 8.9 % (2-11); NEUTROPHILS 75.1 % (40-80); PLATELET COUNT 295 10x3/uL (130-400); RBC 4.34 10x6/uL (4.20-6.10); RDW 15.7 % (11.5-14.5); WBC 9.4 10x3/uL (4.8-10.8)
[2020-03-24 05:23] LABS: ALBUMIN 2.7 g/dL (3.4-5.0); ANION GAP 11.7 mmol/L (8-16); BILIRUBIN - TOTAL 0.65 mg/dL (0.2-1.3); CALCIUM 7.6 mg/dL (8.5-10.1); CARBON DIOXIDE 32.3 mmol/L (21.0-32.0); CREATININE - SERUM 1.3 mg/dL (0.6-1.3); MAGNESIUM - SERUM 1.6 mg/dL (1.8-2.4); PROTEIN - SERUM 6.9 g/dL (6.4-8.2)
--- NOTE | 2020-03-24 07:25 | NUR ---
WALKING ROUNDS COMPLETE, PT LAYING IN BED, PT DENIES PAIN OR NEEDS, NO DISTRESS NOTED, SR UP X2, CALL LIGHT IN REACH, BED LOW AND LOCKED, WILL CONTINUE TO MONITOR
--- NOTE | 2020-03-24 09:02 | NUR ---
GAVE PT SCHEDULED MEDS, NO PROBLEMS NOTED,
[2020-03-24 09:11] VITALS: BP 148/79
--- NOTE | 2020-03-24 11:30 | EC ---
PATIENT:CASSY MENDIOLA DATE OF SERVICE: 03/21/20 SEX: M MEDICAL RECORD: [id number] DATE OF : [birth year] LOCATION:D.M2 D.210 AGE OF PATIENT: 59 ADMISSION DATE: 03/21/20 REFERRING PHYSICIAN: INTERPRETING PHYSICIAN: YANELI CASTILLO MD ECHOCARDIOGRAM REPORT ECHO CHARGES 4 ECHO COMPLETE Date: 03/22/20 CLINICAL DIAGNOSIS: DYSPNEA ECHOCARDIOGRAPHIC MEASUREMENTS (adult normal given) AC root (d.<3.7cm) 3.3 cm LV Septum d (<1.2 cm> 0.7 cm Valve Excursion 1.8 cm LV Septum (systole) 1.0 cm Left Atria (s.<4.0cm> 4.0 cm LVPW d(<1.2cm) 0.6 cm RV (d.<2.3cm) 3.6 cm LVPW (sytole) 0.8 cm LV diastole(<5.6CM) 6.4 cm MV E-F(>70mm/sec) cm LV systole 5.8 cm LVOT Diameter 1.7 cm MV exc.(>10mm) cm Est.ejection fraction (50-75%) % DOPPLER: LVIT cm/sec A 32 cm/sec E 69 cm/sec LA cm/sec RVSP 29.0 mmHg LVOT 50 cm/sec AOP1/2T m/s Asc. Ao 68 cm/sec RVOT 40 cm/sec RA cm/sec PA 50 cm/sec AV Gradient Peak 1.9 mmHg AV Mean 1.2 mmHg AV Area 1.6 cm MV Gradient Peak 3.0 mmHg MV Mean 1.2 mmHg MV Area cm COMMENTS: Exhibitor Sales: Liya TORRES Project Director: 3 Dr. Brunson TAPE# PACS Pericardial Effusion N DATE OF SERVICE: 03/23/2020 Adequate 2D, color flow imaging, spectral Doppler, and M-Mode. No LVH. LV internal dimensions are normal. LV is globally hypokinetic with reduced EF, estimated EF 30% to 35%. Aortic valve sclerosis without stenosis by Doppler interrogation. Left atrium is normal at 4.0 cm. Mitral valve shows no prolapse. Mild MR. Right-sided chambers are grossly normal. Trace TR. TRANSINT:[id number] Voice Confirmation ID: [id number] DOCUMENT ID: [id number] ECHOCARDIOGRAM REPORT [id number] CASSY MENDIOLA GREGORY A MD at 1130 CC: [id number] DICTATION DATE: 03/23/20831 DEVELOPING MACHINE TENDER: 03/23/20 1153 ADM IN [facility] [id number] [place] [id number]
--- NOTE | 2020-03-24 12:00 | NUR ---
PT VOIDING WITHOUT DIFFICULTY, PT DENIES PAIN OR NEEDS, BED LOW AND LOCKED, CALL LIGHT IN REACH, WILL CONTINUE TO MONITOR
[2020-03-24 12:04] VITALS: BP 144/75
--- NOTE | 2020-03-24 12:17 | NUR ---
Nutrition Follow-up: Eating breakfast at time of visit this AM. Reports good appetite. -BM. Abd US this AM. Diet: Cardiac Wt: 159.8# (03/22) Labs noted: Na 131, K+ 3.0, Ca 7.6, Mg 1.6, Alb 2.7 Meds noted: Lasix, KDur, Protonix, electrolyte protocol -Monitor wt; noted daily wts ordered. -RD following.
[2020-03-24 16:57] VITALS: BP 111/62
[2020-03-24 20:30] VITALS: BP 107/62
[2020-03-25 00:45] VITALS: BP 117/62
--- NOTE | 2020-03-25 03:23 | NUR ---
ASSESSED AT THE BEGINNING OF THE SHIFT. PT IS ALERT AND ORIENTED, ABLE TO VERBALIZE NEEDS. HE HAS RHEUMATOID ARTHRITIS WHICH HAS DEFORMED HIS HANDS TO THE POINT OF MAKING IT HARD TO DO MANY OF HIS ADLS. HE HAS A URINAL AT THE BEDSIDE AND IS NOT ON ROOM AIR. HAS SLEPT FOR SEVERAL HRS AFTER MED PASS AND THEN IS NOW AWAKE DRINKING A COKE FLOAT.
[2020-03-25 04:30] VITALS: BP 136/85
[2020-03-25 05:31] LABS: BASOPHILS 0.3 % (0-2); EOSINOPHILS 0.8 % (0-7); HEMATOCRIT 36.1 % (42.0-54.0); HEMOGLOBIN 11.6 g/dL (13.5-17.5); IMMATURE GRANULOCYTES 0.3 % (0-5); LYMPHOCYTES 22.2 % (15-50); MCH 25.7 pg (26.0-34.0); MCHC 32.1 g/dL (31.0-37.0); MEAN PLATELET VOLUME 9.7 fL (7.4-10.4); MONOCYTES 10.8 % (2-11); NEUTROPHILS 65.6 % (40-80); PLATELET COUNT 304 10x3/uL (130-400); RBC 4.51 10x6/uL (4.20-6.10); RDW 16.3 % (11.5-14.5); WBC 7.7 10x3/uL (4.8-10.8)
[2020-03-25 05:58] LABS: ALBUMIN 2.6 g/dL (3.4-5.0); ANION GAP 6.3 mmol/L (8-16); BILIRUBIN - TOTAL 0.44 mg/dL (0.2-1.3); CARBON DIOXIDE 35.7 mmol/L (21.0-32.0); CREATININE - SERUM 1.5 mg/dL (0.6-1.3); MAGNESIUM - SERUM 1.9 mg/dL (1.8-2.4); PROTEIN - SERUM 7.1 g/dL (6.4-8.2)
--- NOTE | 2020-03-25 07:31 | NUR ---
WALKING ROUNDS COMPLETE, PT LAYING IN BED ALERT AND ORIENTED, SKIN WARM AND DRY, RESP EVEN AND UNLABORED, TELE BEING MONITORED, IV SALINE LOCKED, PT DENIES PAIN OR NEEDS, SR UP X2, CALL LIGHT IN REACH, BED LOW AND LOCKED, WILL CONTINUE TO MONITOR
[2020-03-25 08:04] VITALS: BP 171/98
--- NOTE | 2020-03-25 08:41 | NUR ---
PT TOOK AM MEDS WITHOUT DIFFICULTY, PT DENIES PAIN OR NEEDS, DOCTOR AT BEDSIDE, VERBALIZED PT MIGHT GET TO GO HOME TODAY, SR UPX2, CALL LIGHT IN REACH, BED LOW AND LOCKED, WILL MONITOR
[2020-03-25 12:32] VITALS: BP 146/84
--- NOTE | 2020-03-25 15:40 | NUR ---
PT SITTING UP ON SIDE OF BED DRINKING COLA, PT DENIES ANY NEEDS OR PAIN AT THIS TIME, SR UP X1, BED LOW AND LOCKED, CLWR, WILL MONITOR
[2020-03-25] MEDS ORDERED: OMNICEF300 MG PO (15:53)
[2020-03-25] MEDS ORDERED: NORVASC10 MG PO (15:54)
[2020-03-25] MEDS ORDERED: LISINOPRIL5 MG PO (15:54)
[2020-03-25] MEDS ORDERED: COREG6.25 MG PO (15:54)
--- NOTE | 2020-03-25 16:28 | NUR ---
PT'S PHARMACY CLOSED UNTIL FRIDAY. SPOKE WITH HIM AND [facility] CALLED TO [facility] . SPOKE WITH YELENA, PHARMACIST.
--- NOTE | 2020-03-25 16:59 | MORECARE ---
CASE MANAGEMENT DISCHARGE SUMMARY PATIENT: CASSY MENDIOLA UNIT: [id number] ADM DATE: 03/21/20 AGE: 59 : 56 SEX: M ROOM/BED: D.2103 AUTHOR: TOYA MCCONNELL PHYSICIAN: REFERRING PHYSICIAN: YANELI WAHL MD DATE OF SERVICE: 03/25/20 Discharge Plan Patient Name: CASSY MENDIOLA Facility: [facility]:[place] : 1960 Planned Disposition: Home Anticipated Discharge Date: Discharge Date: Expected LOS: Initial Reviewer: [email or web address] Initial Review Date: 03/21/2020 Generated: 03/25/20 5:59 pm DCPIA - Discharge Planning Initial Assessment Updated by [email or web address]: Bee Robles on 03/25/20 4:55 pm * Is the patient Alert and Oriented? Yes * How many steps to enter\exit or inside your home? * PCP IZABELA * Pharmacy [facility] - WILL USE [facility] TODAY * Preadmission Environment Home with Family * ADLs Independent * List name and contact numbers for known caregivers / representatives who currently or will assist patient after discharge: CAITLYN MENDIOLA - BROTHER - [phone] * Verbal permission to speak to the caregivers and representatives has been obtained from the patient. Yes * Community resources currently utilized None * Additional services required to return to the preadmission environment? No * Can the patient safely return to the preadmission environment? Yes * Has this patient been hospitalized within the prior 30 days at any hospital? No Patient Name: CASSY MENDIOLA Page 34568 at 1659 All edits/amendments must be made on the electronic document DICTATION DATE: 03/25/201658 CURBER: GILBERT 03/25/201658 RPT#: [id number] DC DATE: STATUS: ADM IN [facility] [address] [place] [address] END OF REPORT
--- NOTE | 2020-03-25 17:06 | MORECARE ---
CASE MANAGEMENT DISCHARGE SUMMARY PATIENT: CASSY MENDIOLA UNIT: [id number] ADM DATE: 03/21/20 AGE: 59 : 56 SEX: M ROOM/BED: D.2103 AUTHOR: JAYESH,DOC PHYSICIAN: REFERRING PHYSICIAN: YANELI WAHL MD DATE OF SERVICE: 03/25/20 Discharge Plan Patient Name: CASSY MENDIOLA Facility: [facility]:[place] : 1960 Planned Disposition: Home Anticipated Discharge Date: Discharge Date: Expected LOS: Initial Reviewer: [email or web address] Initial Review Date: 03/21/2020 Generated: 03/25/20 6:05 pm Comments DCP- Discharge Planning Updated by [email or web address]: Bee Robles on 03/25/20 4:[address] Patient Name: CASSY MENDIOLA Admission Status: ER Accout number: [id number] Admission Date: 03-21-2020 : 1960 Admission Diagnosis:HEART FAILURE, UNSPECIFIED Attending: RAFI Current LOS: 4 Anticipated DC Date: Planned Disposition: Home Primary Insurance: MEDICAID [place] Discharge Planning Comments: CM met with patient to complete initial dc planning assessment. CM educated patient on the CM role and verbal consent given by patient to complete assessment. Patient lives at home with family. Patient states that he lives with his sister and she is his caregiver via [place]. At discharge patient plans to return home and feels this is a safe discharge. CM discussed availability of home health, rehab services, and medical equipment. Patient will have family to transport home. Patient denied known discharge needs at this time. CM asked patient about being able to get his medications he stated that he should be able to obtain meds with his Medicaid. He states that he gets 6 slots a month for meds. CM gave patient a Good RX card in case he needed it for future medications. CM will continue to follow and will assist as needed with dc plans/needs. Training Officer: Bee Robles DCPIA - Discharge Planning Initial Assessment Updated by [email or web address]: Bee Robles on 03/25/20 4:55 pm * Is the patient Alert and Oriented? Yes * How many steps to enter\exit or inside your home? * PCP IZABELA * Pharmacy [facility] - WILL USE [facility] TODAY * Preadmission Environment Home with Family * ADLs Independent * List name and contact numbers for known caregivers / representatives who currently or will assist patient after discharge: CAITLYN MENDIOLA - BROTHER - [phone] * Verbal permission to speak to the caregivers and representatives has been obtained from the patient. Yes * Community resources currently utilized None * Additional services required to return to the preadmission environment? No * Can the patient safely return to the preadmission environment? Yes * Has this patient been hospitalized within the prior 30 days at any hospital? No Last DP export: 03/25/20 4:00 pm Patient Name: CASSY MENDIOLA Page 21074 at 1706 All edits/amendments must be made on the electronic document DICTATION DATE: 03/25/201705 FELT MACHINE MECHANIC: GILBERT 03/25/201705 RPT#: [id number] DC DATE: STATUS: ADM IN [facility] [address] [place] [address] END OF REPORT
[2020-03-25 17:42] VITALS: BP 133/78
--- NOTE | 2020-03-25 17:57 | NUR ---
WENT OVER DISCHARGE INSTRUCTIONS WITH PT, PT VERBALIZED UNDERSTANDING OF PICKING UP MEDS FROM [facility], ALSO ABOUT FOLLOW UP APPT WITH PRIMARY CARE, CARDIOLOGY, AND RELATIONS COORDINATOR, REMOVED IV FROM RIGHT FOREARM, CATHLON INTACT, PT RIDE IS ON THEIR WAY, INSTRUCTED TO CALL WHEN HERE, TELE REMOVED AND RETURNED TO MONITOR HUB,
--- NOTE | 2020-03-26 09:35 | MORECARE ---
CASE MANAGEMENT DISCHARGE SUMMARY PATIENT: CASSY MENDIOLA UNIT: [id number] ADM DATE: 03/21/20 AGE: 59 : 56 SEX: M ROOM/BED: D.2105 AUTHOR: JAYESH,DOC PHYSICIAN: REFERRING PHYSICIAN: YANELI WAHL MD DATE OF SERVICE: 03/26/20 Discharge Plan Patient Name: CASSY MENDIOLA Facility: [facility]:[place] : 1960 Planned Disposition: Home Anticipated Discharge Date: Discharge Date: 03/25/2020 Expected LOS: Initial Reviewer: [email or web address] Initial Review Date: 03/21/2020 Generated: 03/26/20 10:35 am Comments DCP- Discharge Planning Updated by [email or web address]: Bee Robles on 03/25/20 4:[address] Patient Name: CASSY MENDIOLA Admission Status: ER Accout number: [id number] Admission Date: 03-21-2020 : 1960 Admission Diagnosis:HEART FAILURE, UNSPECIFIED Attending: RAFI Current LOS: 4 Anticipated DC Date: Planned Disposition: Home Primary Insurance: MEDICAID [place] Discharge Planning Comments: CM met with patient to complete initial dc planning assessment. CM educated patient on the CM role and verbal consent given by patient to complete assessment. Patient lives at home with family. Patient states that he lives with his sister and she is his caregiver via [place]. At discharge patient plans to return home and feels this is a safe discharge. CM discussed availability of home health, rehab services, and medical equipment. Patient will have family to transport home. Patient denied known discharge needs at this time. CM asked patient about being able to get his medications he stated that he should be able to obtain meds with his Medicaid. He states that he gets 6 slots a month for meds. CM gave patient a Good RX card in case he needed it for future medications. CM will continue to follow and will assist as needed with dc plans/needs. [employer]: Bee Robles DCPIA - Discharge Planning Initial Assessment Updated by [email or web address]: Bee Robles on 03/25/20 4:55 pm * Is the patient Alert and Oriented? Yes * How many steps to enter\exit or inside your home? * PCP I[facility]A * [facility] - [facility] * Preadmission Environment Home with Family * ADLs Independent * List name and contact numbers for known caregivers / representatives who currently or will assist patient after discharge: CAITLYN MENDIOLA - ASH[place]IGHER - [phone] * Verbal permission to speak to the caregivers and representatives has been obtained from the patient. Yes * Community resources currently utilized None * Additional services required to return to the preadmission environment? No * Can the patient safely return to the preadmission environment? Yes * Has this patient been hospitalized within the prior 30 days at any hospital? No Last DP export: 03/25/20 4:06 pm Patient Name: CASSY MENDIOLA Page [id number] at 0935 All edits/amendments must be made on the electronic document DICTATION DATE: 03/26/20934 ANALOG IC DESIGN ENGINEER: GILBERT 03/26/20934 RPT#: [id number] DC DATE:03/25/20 STATUS: DIS IN [facility] [address] [place] [address] END OF REPORT
[2020-03-26] MEDS ORDERED: LEVAQUIN750 MG PO (10:35)
[2020-03-26] MEDS ORDERED: NICODERM CQ1 EAC2 TOPICAL (10:35)
[2020-03-26] MEDS ORDERED: ALBUTEROL SULF8.5 GM INH (10:35)
[2020-03-28 09:12] LABS: ANTINUCLEAR ANTIBODIES DIRECT Negative (Negative); DOUBLE-STRANDED DNA ABS 1 IU/mL (0-9); HEPATITIS C ANTIBODY >11.0 S/CO RAT (0.0-0.9)
== END 2020-03-25 18:53 | disposition home or self-care (01) | DRG 280 ==
LOC: D.ER 16:01 → D.M2 21:01
PROVIDERS: Family Medicine; ADMIT Family Medicine; ATTEND Family Medicine
DX: I11.0 Hypertensive heart disease with heart failure (principal); I21.A1 Myocardial infarction type 2; J18.9 Pneumonia, unspecified organism; I50.21 Acute systolic (congestive) heart failure; K72.00 Acute and subacute hepatic failure without coma; I16.9 Hypertensive crisis, unspecified; E87.1 Hypo-osmolality and hyponatremia; F17.203 Nicotine dependence unspecified, with withdrawal; J44.0 Chronic obstructive pulmonary disease with (acute) lower respiratory infection; J44.1 Chronic obstructive pulmonary disease with (acute) exacerbation; D47.3 Essential (hemorrhagic) thrombocythemia; D50.9 Iron deficiency anemia, unspecified; I25.10 Atherosclerotic heart disease of native coronary artery without angina pectoris; Z86.73 Personal history of transient ischemic attack (TIA), and cerebral infarction without residual deficits

== ENCOUNTER 2020-03-26 09:23 | Emergency (ER) | payer MEDICAID ==
[~2020-03-26 09:23] MED LIST changes: +COREG6.25 MG PO; +LISINOPRIL5 MG PO; +NORVASC10 MG PO; +OMNICEF300 MG PO
[2020-03-26 09:28] VITALS: Ht 175.3 cm
[2020-03-26 10:06] LABS: BASOPHILS 0.6 % (0-2); EOSINOPHILS 1.8 % (0-7); HEMATOCRIT 41.1 % (42.0-54.0); HEMOGLOBIN 13.5 g/dL (13.5-17.5); IMMATURE GRANULOCYTES 0.3 % (0-5); LYMPHOCYTES 18.8 % (15-50); MCH 26.1 pg (26.0-34.0); MCHC 32.8 g/dL (31.0-37.0); MCV 79.5 fL (80.0-100.0); MEAN PLATELET VOLUME 9.2 fL (7.4-10.4); MONOCYTES 9.3 % (2-11); NEUTROPHILS 69.2 % (40-80); PLATELET COUNT 333 10x3/uL (130-400); RBC 5.17 10x6/uL (4.20-6.10); RDW 16.3 % (11.5-14.5); WBC 8.9 10x3/uL (4.8-10.8)
[2020-03-26 10:12] LABS: CALC OSMOLALITY 265 mosm/kg (275-300); CALCIUM 8.5 mg/dL (8.5-10.1); CHLORIDE - SERUM 94 mmol/L (98-107); CREATININE - SERUM 1.3 mg/dL (0.6-1.3); GLUCOSE 101 mg/dL (74-106); SODIUM 130 mmol/L (136-145); UREA NITROGEN 27 mg/dL (7-18); eGFR NON AFRICAN AMERICAN 60 mL/min (90-120)
[2020-03-26 10:35] LABS: ALKALINE PHOSPHATASE 146 U/L (30-120); ALT (SGPT) 202 U/L (10-68); BILIRUBIN - TOTAL 0.41 mg/dL (0.2-1.3); CKMB 2.6 U/L (0.0-3.6); CREATINE KINASE 90 UL (21-232); PRO BNP 9205 pg/mL (0-125); PROTEIN - SERUM 7.7 g/dL (6.4-8.2)
[2020-03-26] MEDS ORDERED: LEVAQUIN750 MG PO (10:35)
[2020-03-26] MEDS ORDERED: ALBUTEROL SULF8.5 GM INH (10:35)
[2020-03-26] MEDS ORDERED: NICODERM CQ1 EAC2 TOPICAL (10:35)
[2020-03-26 10:40] LABS: TROPONIN-I 0.067 ng/mL (0.000-0.060)
[2020-03-26 12:10] VITALS: BP 169/92
== END 2020-03-26 11:05 | disposition home or self-care (01) ==
LOC: D.ER 09:23
PROVIDERS: Family Medicine
DX: R06.02 Shortness of breath (principal); J18.9 Pneumonia, unspecified organism; R79.89 Other specified abnormal findings of blood chemistry; Z86.73 Personal history of transient ischemic attack (TIA), and cerebral infarction without residual deficits; I10 Essential (primary) hypertension; I25.2 Old myocardial infarction